=== PATIENT | female | born 1945 | race African-American/Black ===

== ENCOUNTER 2019-10-15 18:49 | Inpatient (IN) | payer OTHER ==
[~2019-10-15] VITALS: Ht 167.6 cm; Wt 87.5 kg
[2019-10-15 18:54] VITALS: BP 141/87
[2019-10-15 19:45] LABS: ABSOLUTE NEUTROPHILS 3.3 thou/uL (1.4-8.2); BASOPHILS 1.5 % (0.0-2.0); EOSINOPHILS 4.7 % (0.0-3.0); HEMATOCRIT 38.2 % (37.0-47.0); HEMOGLOBIN 12.4 gm/dL (12.0-15.0); LYMPHOCYTES 35.9 % (24.0-44.0); MCHC 32.5 g/dL (28.0-37.0); MCV 86.1 fL (80.0-100.0); MONOCYTES 10.8 % (1.0-8.0); PLATELET COUNT 327 thou/uL (150-400); POLYS 47.1 % (36.0-66.0); RBC 4.44 mil/uL (4.20-5.00); RDW 14.2 % (10.5-14.5); WBC 6.9 thou/uL (4.0-11.0)
[2019-10-15] MEDS ORDERED: C-500500 MG PO (19:52)
[2019-10-15] MEDS ORDERED: ASA81BEC PO (19:54)
[2019-10-15] MEDS ORDERED: LIPITOR40 MG PO (19:55)
[2019-10-15] MEDS ORDERED: ARICEPT10 M1 PO (19:56)
[2019-10-15] MEDS ORDERED: SLOW FE142 MG PO (19:57)
[2019-10-15] MEDS ORDERED: HALOPERIDOL 2 MG2 MG PO (19:58)
[2019-10-15] MEDS ORDERED: INSULIN LI100 UNIT/1 SUBQ (20:04)
[2019-10-15] MEDS ORDERED: COZAAR 25 MG TA25 M2 PO (20:04)
[2019-10-15] MEDS ORDERED: LOPRESSOR50 MG PO (20:05)
[2019-10-15] MEDS ORDERED: TOPROL XL50 MG PO (20:05)
[2019-10-15] MEDS ORDERED: MIRTAZAPINE7.5 MG PO (20:06)
[2019-10-15] MEDS ORDERED: NEURONTIN100 MG PO (20:08)
[2019-10-15] MEDS ORDERED: TRAZODONE 150150 M1 PO (20:08)
[2019-10-15] MEDS ORDERED: ZANTAC 150MG T150 M1 PO (20:09)
[2019-10-15 20:41] LABS: ANION GAP 9 mmol/L (7-16); BUN 14 mg/dL (7-18); CALCIUM 9.3 mg/dL (8.5-10.1); CHLORIDE 105 mmol/L (98-107); CO2 24 mmol/L (21-32); CREATININE 0.9 mg/dL (0.6-1.0); GLUCOSE 197 mg/dL (74-106); POTASSIUM 3.9 mmol/L (3.5-5.1); SODIUM 138 mmol/L (136-145)
[2019-10-15 20:51] LABS: ALBUMIN 3.8 g/dL (3.4-5.0); SGOT 36 U/L (15-37); SGPT 57 U/L (30-65); TOTAL BILIRUBIN 0.2 mg/dL (<0.1-1.0); TOTAL PROTEIN 7.3 g/dL (6.4-8.2); TROPONIN-I <0.06 ng/mL (<0.06)
[2019-10-15 21:07] VITALS: BP 141/87
[2019-10-15 21:07] LABS: APTT 22.4 Seconds (24.5-32.8)
[2019-10-15 22:40] VITALS: BP 138/91
[2019-10-15 22:43] VITALS: BP 152/73
[2019-10-16 00:19] VITALS: BP 136/65
[2019-10-16 04:56] LABS: ANION GAP 8 mmol/L (7-16); BUN 12 mg/dL (7-18); CALCIUM 9.2 mg/dL (8.5-10.1); CHLORIDE 103 mmol/L (98-107); CO2 26 mmol/L (21-32); CREATININE 0.9 mg/dL (0.6-1.0); GLUCOSE 277 mg/dL (74-106); MAGNESIUM 1.9 mg/dL (1.8-2.4); POTASSIUM 3.9 mmol/L (3.5-5.1); SODIUM 137 mmol/L (136-145); TROPONIN-I <0.06 ng/mL (<0.06)
[2019-10-16 05:04] LABS: CHOLESTEROL 139 mg/dL (<200); HDL CHOLESTEROL 76 mg/dL (>40); LDL CHOLESTEROL 51 mg/dL (<100); TC:HDL 1.8 Ratio (Not establshd); TRIGLYCERIDE 60 mg/dL (<150); VLDL 12 mg/dL (<40)
[2019-10-16 05:08] LABS: BASOPHILS 0.9 % (0.0-2.0); EOSINOPHILS 5.7 % (0.0-3.0); HEMATOCRIT 35.1 % (37.0-47.0); HEMOGLOBIN 11.1 gm/dL (12.0-15.0); LYMPHOCYTES 33.2 % (24.0-44.0); MCH 27.5 pg (26.0-34.0); MCHC 31.6 g/dL (28.0-37.0); MONOCYTES 10.9 % (1.0-8.0); PLATELET COUNT 285 thou/uL (150-400); POLYS 49.3 % (36.0-66.0); RBC 4.04 mil/uL (4.20-5.00); RDW 14.1 % (10.5-14.5); SERUM ASSESSMENT Clear; WBC 6.1 thou/uL (4.0-11.0)
[2019-10-16 05:42] VITALS: BP 137/71
--- NOTE | 2019-10-16 06:11 | NUR ---
ASSUMED PT CARE AT APROX 2300 FROM ER. VSS.PT A&OX4. PT ON 2L NC. SATTING WELL. PT IS STEADY ON HER FEET. CASE MANAGEMENT CONSULTED FOR EDUCATION ON ADVANCE DIRECTIVES SHE HAS NONE. ADMISSION ASSESSMENT DONE AND CHART MADE. PT SLEPT THOUGH THE NOC, NO COMPLAINTS OF PAIN OR DISCOMFORT, WILL CONTINUE TO MONITOR PER POC.
[2019-10-16 08:00] VITALS: BP 133/64
--- NOTE | 2019-10-16 11:36 | NUR ---
ASSUMED CARE AT 0700, SHIFT ASSESSMENT DONE, MEDS GIVEN, VSS. DENIES PAIN, NAUSEA, VOMITING. UP WITH STANDBY ASSIST. NSR ON TELE, ROOM AIR. ALLERGIC TO INSULIN ASPART, REPORTED ITCHING THIS AM, ORDER RECEIVED FOR BENDARYL, ADMINISTERED WITH SOME RELIEF. PHARMACY AHD QUESTIONS ABOUT METORPOLOL, NOT ABLE TO VRIFY DOSE YET PT DOES NOT KNOW HER PHARMACY, DOES NOT HAVE A LIST. AWAITING FOR SON TO COME WITH THE LIST. WILL CONTINUE TO ASSESS AND ASSIST WITH ADLs NEEDED.
[2019-10-16 11:40] VITALS: BP 123/70
--- NOTE | 2019-10-16 11:45 | EKG ---
[facility] [place] [address] ELECTROCARDIOGRAM REPORT Name: RUSLAN FARLEY Room #: 219-P ADM IN M.R.#: [id number] Admission: 10/15/19 Attend Phys: Calvin Monique MD Discharge: Date of : 49 Report #: [id number] THIS REPORT FOR: //name// [facility] ED Test Date: 2019-10-15 Test Time: 19:19:34 Pat Name: RUSLAN FARLEY Department: Room: 219 Gender: F Disk Recordist: RAMIREZ : 1945 Requested By: Pablo Adams Order Number: [id number] MD: Simone Romo Measurements Intervals [place] Rate: 79 P: 50 [place]: 179 QRS: 61 QRSD: 129 T: -63 QT: 396 QTc: 455 Interpretive Statements Sinus rhythm Probable left atrial enlargement Right bundle branch block LVH with IVCD and secondary repol abnrm No previous ECG available for comparison Electronically Signed On 10-16-2019 11:44:33 GLUE SPREADER by Simone Romo [email or web address] <ELECTRONICALLY SIGNED> By: Simone Romo MD, [facility] 10/16/19 1144 [id number] 18 Simone Romo MD, [facility] /EPI
[2019-10-16 18:00] VITALS: BP 141/76
--- NOTE | 2019-10-16 19:44 | NUR ---
ASSUMED CARE OF PATIENT AT 1500 FROM [facility]. ASSESSMENT COMPLETED. IV PLACED BY IV TEAM AND PATIENT TAKEN TO CT SCAN. CT SCAN NEGATIVE FOR PE. PATIENT'S BLOOD SUGAR CHECKED AC&HS AND SUPPLEMENTED WITH INSULIN. PATIENT C/O BILATERAL GROIN AND LOWER BACK ITCHING, WHICH WAS RELIEVED WITH BENADRYL. PATIENT'S SON AT THE BEDSIDE. PATIENT'S METOPROLOL DOSE VERIFIED WITH [facility] AND RELAYED TO DR. ATKINSON. PATIENT TO CONTINUE WITH POC.
[2019-10-16 20:53] VITALS: BP 135/65
[2019-10-17 04:26] VITALS: BP 139/61
--- NOTE | 2019-10-17 04:43 | NUR ---
NO OVERNIGHT EVENTS. PT. RESTED WELL THRTOUGHOUT NIGHT. NO COMPLAINTS OF SOB. NO COMPLAINTS OF PAIN. ASSESSMENTS AND VITAL SIGNS CHARTED. CONTINUE TO FOLLOW POC. WILL CONTINUE TO MONITOR.
[2019-10-17 08:00] VITALS: BP 139/85
--- NOTE | 2019-10-17 11:00 | 2DMMODE ---
[facility] [place] [address] 2 D/M-MODE ECHOCARDIOGRAM Name: RUSLAN FARLEY NORMA Room #: 219-P ADM IN M.R.#: [id number] Admission: 10/15/19 Attend Phys: Calvin Monique MD Discharge: Date of : 49 Report #: [id number] THIS REPORT FOR: //name// APPROVED REPORT Study performed: 10/17/2019 10:26:18 EXAM: Comprehensive 2D, Doppler, and color-flow Echocardiogram Patient Location: Echo lab Room #: 219 Status: routine BSA: 2.00 HR: 73 bpm BP: 139/61 mmHg Rhythm: NSR Other Information Study Quality: Adequate Indications Shortness of breath. Hx: STEMI, stent, DM, HTN, HLP. 2D Dimensions RVDd: 28.35 mm IVSd: 11.17 (7-11mm) LVOT Diam: 21.40 (18-24mm) LVDd: 41.52 mm PWd: 11.00 (7-11mm) LVDs: 26.66 (25-40mm) Aortic Root: 37.00 mm Volumes Left Atrial Volume (Systole) Single Plane 4CH: 50.66 mL Single Plane 2CH: 46.62 mL LA ESV Index: 26.00 mL/m2 Aortic Valve AoV Peak Alexi.: 1.33 m/s AO Peak Gr.: 7.05 mmHg LVOT Max P.77 mmHg LVOT Max V: 1.39 m/s LUIS ALFREDO Vmax: 3.78 cm2 Mitral Valve E/A Ratio: 0.6 MV Decel. Time: 364.95 ms MV E Max Alexi.: 0.61 m/s [facility] [address] [place] [address] 2 D/M-MODE ECHOCARDIOGRAM Name: MIG[facility]ELITORUSLAN [facility] Room #: 219-P [facility] IN ..#: [id number] Admission: 10/15/19 Attend Phys: Calvin Monique MD Discharge: Date of : 49 Report #: [id number] MV A Alexi.: 1.02 m/s MV PHT: 105.83 ms IVRT: 117.65 ms Pulmonary Valve PV Peak Alexi.: 0.82 m/s PV Peak Gr.: 2.67 mmHg Pulmonary Vein P Vein S: 0.68 m/s P Vein D: 0.49 m/s P Vein S/D Ratio: 1.39 Tricuspid Valve TR Peak Alexi.: 2.13 m/s RAP Estimate: 5.00 mmHg TR Peak Gr.: 18.21 mmHg PA Pressure: 23.00 mmHg Left Ventricle The left ventricle is normal size. There is normal LV segmental wall motion. Mild left ventricular hypertrophy. Left ventricular systolic function is normal. LVEF is 65%. Mild diastolic dysfunction is present (impaired relaxation pattern). Right Ventricle The right ventricle is normal size. The right ventricular systolic function is normal. Atria The left atrium size is normal. The right atrium size is normal. Aortic Valve The aortic valve is normal in structure. No aortic regurgitation is present. There is no aortic valvular stenosis. Mitral Valve The mitral valve is normal in structure. Mild mitral regurgitation. Tricuspid Valve The tricuspid valve is normal in structure. Trace tricuspid regurgitation. Estimated PAP is 20-25mmHg. Pulmonic Valve Pulmonic valve is not well visualized. Trace pulmonic regurgitation. [facility] [place] [address] 2 D/M-MODE ECHOCARDIOGRAM Name: RUSLAN FARLEY NORMA Room #: 219-P ADM IN M.R.#: [id number] Admission: 10/15/19 Attend Phys: Calvin Monique MD Discharge: Date of : 49 Report #: [id number] Great Vessels Aortic root is borderline dilated. Ascending aorta is not well visualized. IVC is normal in size and collapses >50% with inspiration. Pericardium There is no pericardial effusion. <Conclusion> Left ventricular systolic function is normal. There is normal LV segmental wall motion. LVEF is 65%. Mild diastolic dysfunction The aortic valve is normal in structure. No aortic regurgitation or stenosis. The mitral valve is normal in structure. Mild mitral regurgitation. Trace tricuspid regurgitation. Estimated pulmonary artery pressure of 20-25mmHg. There is no pericardial effusion. <ELECTRONICALLY SIGNED> By: Simone Romo MD, FACC 10/17/19 1100 1100 1100 Simone Romo MD, FACC /INF
[2019-10-17 12:46] VITALS: BP 115/76
[2019-10-17 16:00] VITALS: BP 160/81
--- NOTE | 2019-10-17 18:55 | NUR ---
PT WAS TOLD SHE CANNOT HAVE ANYMORE CAFFEINE OR MOST OF HER BP MEDS BEFORE CARDIAC STRESS TEST TOMORROW MORNING, SHE UNDERSTANDS THAT SHE WILL BE NPO AT MIDNIGHT IN PREP FOR THE TEST TOMORROW. DAUGHTER ALSO UNDERSTANDS AND HELPED REMIND PT.
[2019-10-17 19:25] VITALS: BP 132/69
[2019-10-17 23:49] VITALS: BP 149/79
--- NOTE | 2019-10-18 04:30 | NUR ---
PT CON'T TO C/O ITCHING BENADRYL GIVEN, PT RESTING QUIETLY, VSS, NO C/O PAIN, NPO FOR NUC. STRESS TEST TODAY, WILL CON'T TO MONITOR PER PPOC.
[2019-10-18 05:17] VITALS: BP 126/63
[2019-10-18 05:25] LABS: CALCIUM 9.7 mg/dL (8.5-10.1); CREATININE 0.7 mg/dL (0.6-1.0); POTASSIUM 4.6 mmol/L (3.5-5.1)
[2019-10-18 05:29] LABS: HEMATOCRIT 36.8 % (37.0-47.0); HEMOGLOBIN 11.9 gm/dL (12.0-15.0); MCH 27.7 pg (26.0-34.0); MCHC 32.4 g/dL (28.0-37.0); MCV 85.6 fL (80.0-100.0); RBC 4.3 mil/uL (4.20-5.00); RDW 14.2 % (10.5-14.5); WBC 8.7 thou/uL (4.0-11.0)
[2019-10-18 08:00] VITALS: BP 127/71
[2019-10-18 12:20] VITALS: BP 133/78
[2019-10-18 17:25] VITALS: BP 143/82
[2019-10-18 18:00] VITALS: BP 143/82
--- NOTE | 2019-10-18 18:06 | NUR ---
SPOKE WITH DR ATKINSON, PT HAD CT EARLIER TODAY, IT IS JUST NOT REPORTED YET. DR ATKINSON SAYS TO DISCHARGE PT AND HE WILL CALL HER WITH THE RESULTS OF HER CT TOMORROW AND TO FOLLOW UP WITH HER PRIMARY DR IN 2 WEEKS.
--- NOTE | 2019-10-18 18:37 | NUR ---
PT DISCHARGE INSTRUCTIONS REVIEWED WITH PT AND SON. PIV AND TELE WERE REMOVED. PT INSTRUCTED ABOUT DR ATKINSON CALLING WITH CT RESULTS. DISCHARGE INSTRUCTIONS AND ALL BELONGINGS SENT WITH PT.
== END 2019-10-18 18:57 | disposition home or self-care (01) | DRG 204 ==
LOC: ER 18:49 → EROBS 20:49 → 2N 20:49
PROVIDERS: Emergency Medicine; Hospitalist; Nurse Practitioner; ADMIT Hospitalist
DX: R06.01 Orthopnea (principal); J44.9 Chronic obstructive pulmonary disease, unspecified; F31.9 Bipolar disorder, unspecified; I10 Essential (primary) hypertension; E78.5 Hyperlipidemia, unspecified; I25.10 Atherosclerotic heart disease of native coronary artery without angina pectoris; F41.9 Anxiety disorder, unspecified; E03.9 Hypothyroidism, unspecified; E11.42 Type 2 diabetes mellitus with diabetic polyneuropathy; G47.00 Insomnia, unspecified; F03.90 Unspecified dementia, unspecified severity, without behavioral disturbance, psychotic disturbance, mood disturbance, and anxiety; I08.1 Rheumatic disorders of both mitral and tricuspid valves; I25.2 Old myocardial infarction; Z88.8 Allergy status to other drugs, medicaments and biological substances; Z87.891 Personal history of nicotine dependence; Z95.5 Presence of coronary angioplasty implant and graft; Z90.49 Acquired absence of other specified parts of digestive tract; Z79.82 Long term (current) use of aspirin; Z79.899 Other long term (current) drug therapy
CPT/HCPCS: 10081